=== PATIENT | male | born 1960 | race American Indian/Alaskan Native ===

== ENCOUNTER 2020-05-22 06:01 | Day surgery (SDC) | payer MEDICARE ==
[~2020-05-22 06:01] MED LIST: IOHEXOL 300 MG/ML 50ML IV ONE; WATER FOR IRRIG STERILE 1,500 ML BOTTLE IR ONE; WATER FOR IRRIG STERILE 2000 ML IR ONE; ceFAZolin/STERILE WATER 2 GM/20 ML SYRINGE IV NR
[2020-05-22] MEDS ORDERED: LACTATED RINGERS 1,000 ML IV SCH (06:45)
[2020-05-22] MEDS ORDERED: BACTERIOSTATIC SODIUM CHLORIDE 0.9% 30 ML VIAL INFILTRATI ONE (06:46)
[2020-05-22] MEDS ORDERED: HYDROmorphone 1 MG/1 ML INJ IV PRN ×2 (07:27)
[2020-05-22] MEDS ORDERED: ONDANSETRON 4 MG/2 ML INJ IV PRN (07:27)
--- NOTE | 2020-05-22 07:34 | Anesthesia Day of Surgery ---
Anesthesia Day of Surgery - Day of Surgery Patient Examined: Yes Patient H&P Reviewed: Yes Patient is NPO: Yes
--- NOTE | 2020-05-22 07:34 | Anesthesia Consultation ---
Anesthesia Consult and Med Hx Date of service: 05/22/20 - Airway Anesthetic Teeth Evaluation: Good ROM Head & Neck: Adequate Mental/Hyoid Distance: Adequate Mallampati Class: Class I Intubation Access Assessment: Good - Pre-Operative Health Status ASA Pre-Surgery Classification: ASA1 Proposed Anesthetic Plan: General - Pulmonary Hx Smoking: No SOB: No (+2FS) Hx Sleep Apnea: No (ADRIEN PRE SCREEN LOW RISK) - Central Nervous System Hx Psychiatric Problems: No - Other Systems Hx Cancer: Yes (CHEMO/RADIATION FROM AGE 13-16 YRS)
[2020-05-22] MEDS ORDERED: LIDOCAINE MPF (2%) 20 MG/1 ML VIAL 5 ML ONE (08:25)
[2020-05-22] MEDS ORDERED: propofoL 200 MG/20 ML VIAL IV ONE (08:25)
[2020-05-22] MEDS ORDERED: HYDROmorphone 1 MG/1 ML INJ ONE (08:25)
[2020-05-22] MEDS ORDERED: ONDANSETRON 4 MG/2 ML INJ ONE (09:33)
[2020-05-22] MEDS ORDERED: WATER FOR IRRIG STERILE 2000 ML IR ONE (09:43)
[2020-05-22] MEDS ORDERED: IOHEXOL 300 MG/ML 50ML IV ONE (09:46)
[2020-05-22] MEDS ORDERED: WATER FOR IRRIG STERILE 1,500 ML BOTTLE IR ONE (09:53)
--- NOTE | 2020-05-22 10:00 | Short Stay Summary ---
Short Stay Documentation Date of service: 05/22/20 - History H&P: obtained from office - Allergies and Medications Current Medications: Allergies codeine Allergy (Verified 05/21/20 17:52) Hives ibuprofen Allergy (Verified 05/21/20 17:52) Hives scallops Allergy (Verified 05/21/20 17:52) Vomiting shellfish derived Allergy (Verified 05/21/20 17:52) Vomiting Home Medications Medication Instructions Recorded Confirmed Last Taken Type cephALEXin [Keflex] 500 mg PO Q8HR 05/21/20 05/22/20 05/21/20 History Active Medications Cefazolin Sodium (Cefazolin/Sterile Water 2 Gm/20 Ml Syringe) 2 gm IV PREOP NR Stop: 05/22/20 23:59 Hydromorphone HCl (Hydromorphone 1 Mg/1 Ml Inj) 0.25 mg IV Q10MIN PRN PRN Reason: Pain, Moderate (4-6) Stop: 05/22/20 20:00 Hydromorphone HCl (Hydromorphone 1 Mg/1 Ml Inj) 0.5 mg IV Q10MIN PRN PRN Reason: Pain , Severe (7-10) Stop: 05/22/20 20:00 Lactated Ringer's (Lactated Ringers) 1,000 mls @ 100 mls/hr IV DIRECT WENDY Last Admin: 05/22/20 07:15 Dose: 100 mls/hr Documented by: Ondansetron HCl (Ondansetron 4 Mg/2 Ml Inj) 4 mg IV ONCE PRN PRN Reason: Nausea And Vomiting Stop: 05/22/20 12:00 - Brief post op/procedure progress note Date of procedure: 05/22/20 Pre-op diagnosis: left renal stone Post-op diagnosis: other (staghorn) Procedure: cysto, rpg left stent (6F x 26cm) --internal string, ESWL---staged Anesthesia: GETA Surgeon: NGUYEN CLINE Pathology: none Condition: stable - Hospital course Hospital course: bactrim,dilaudid, post op info on chart - Disposition Condition at discharge: Stable Disposition: DC-01 TO HOME OR SELFCARE Short Stay Discharge Plan Follow up with: CHEYENNE NICHOLS MD [Primary Care Provider] - 7 Days
--- NOTE | 2020-05-22 10:15 | Operative Report ---
PREOPERATIVE DIAGNOSIS: Left mid to proximal ureteral stone, large. POSTOPERATIVE DIAGNOSES: Left mid to proximal ureteral stone, large and renal staghorn calculus. PROCEDURES: Cystoscopy, left retrograde pyelogram, double-J stent (6-Kyrgyz 26 cm with a short internal string), left extracorporal shock wave lithotripsy, staged procedure. SURGEON: Alex Contreras MD ANESTHESIA: General. ESTIMATED BLOOD LOSS: Minimal. FLUIDS: Crystalloid. COMPLICATIONS: No complications. INDICATIONS: This 59-year-old gentleman seen in the office with pain at the tip of his penis. CT of abdomen and pelvis, he was found to have a large left-sided stone, gave a history of stones in the past, presents now for interventional procedure. He understands it is a staged procedure. DESCRIPTION OF PROCEDURE: The patient was taken to the operative suite, placed in a supine position. After adequate general anesthesia, placed in a supine position. His stone was localized in 2 planes using fluoroscopy. Plan was to lithotripsy the lower aspect provide space to place the stent. Left Extracorporal shock wave lithotripsy was administered with a maximum kV of 8, 2500 shocks. It was noted he had some fragmentation of the distal moiety of the stone. He was then placed in a dorsal lithotomy position, prepped and draped in a sterile fashion. Pancystourethroscopy was performed with a 22-[place] Storz cystoscope, no urethral abnormalities. Prostate displayed some mild to moderate bilobed obstruction. Bladder, no tumors or stones were noted, mild diffuse trabeculation. Left retrograde pyelogram was obtained with an 8-[place] catheter. No distal obstruction, obvious stone could be appreciated in bifurcation in the renal pelvis. A 6-Kyrgyz 26 cm double-J stent was negotiated past the upper aspect of the stone. Fluoroscopy confirmed adequate position. Bladder was drained. Rectal exam was benign. He was extubated and taken to recovery room in stable condition. At some point, he may need a nuclear scan, looks like the CT showed some functional kidney on the left side. He will go home on Dilaudid, Bactrim and a strainer. JOB# [id number] [facility]
[2020-05-22 10:32] VITALS: BP 153/95
--- NOTE | 2020-05-22 13:08 | Post Anesthesia Evaluation ---
- Post Anesthesia Evaluation Patient Participated: Yes Airway Patent: Yes Stable Respiratory Function: Yes Nausea/Vomiting: No Temp > 96.8F: Yes Pain Manageable: Yes Adequeate Hydration: Yes Anesthesia Complications: No Block Receding Appropriately: Not Applicable Patient on Ventilator: No
== END 2020-05-22 11:10 | disposition home or self-care (01) ==
LOC: OR 06:01
PROVIDERS: ATTEND Urology
DX: N20.2 Calculus of kidney with calculus of ureter (principal); Z91.013 Allergy to seafood; Z88.5 Allergy status to narcotic agent; Z88.8 Allergy status to other drugs, medicaments and biological substances; Z85.830 Personal history of malignant neoplasm of bone; Z96.642 Presence of left artificial hip joint; Z98.890 Other specified postprocedural states
CPT/HCPCS: 50590; 52332; A4217; C1726; C1758; C1769; C2617; J0690; J1170; J2405; J2704; J7120; Q9967